=== PATIENT | male | born 1955 | race Caucasian/White ===

== ENCOUNTER 2025-07-02 20:01 | Emergency (ER) | payer MEDICARE, MEDICAID, SELFPAY ==
[2025-07-02 20:02] VITALS: BP 168/85; PULSE 107; RESP 20; TEMP 36.7; O2SAT 95
[2025-07-02 20:05] VITALS: PULSE 86; RESP 20; O2SAT 99
[2025-07-02 20:09] VITALS: BP 158/75; PULSE 114; RESP 20; TEMP 36.8; O2SAT 95
[2025-07-02 20:11] VITALS: BMI 25.9
--- NOTE | 2025-07-02 20:18 | PD.EDBACK ---
ED Back Injury Pain RME/HPI General Chief Complaint: Back Pain/Injury Stated Complaint: BACK PAIN Time Seen by Provider: 07/02/25 20:16 Arrival date/time: 07/02/25 20:01 Limitations: no limitations RME / HPI RME / HPI Narrative: 70-year-old patient living in a residential facility brought in by EMS. Of concern patient is a hospice patient secondary to metastatic cancer. Primary origin as reported by patient is from spine to brain. Reports stated he was on oral pain medication [id number] and fentanyl patch. Patient was reported to have history of dementia however during a moment of lucidity called EMS. Facility informed EMS that he was hospice. But due to patient appearing coherent was transported here to the hospital. Patient is alert and oriented x 4 during interaction. States he needs something different for pain today. Related Data Allergies Allergy/AdvReac Type Severity Reaction Status Date / Time No Known Allergies Allergy Verified 07/02/25 20:09 Review of Systems Review of Systems Systems Reviewed: All systems reviewed, normal except as documented Constitutional Constitutional: Denies fever(s) Musculoskeletal Musculoskeletal: Reports as per HPI ED Exam General Limitations: Present no limitations General appearance: Present alert and other (Moderate distress) Head Head exam: Present atraumatic Eye Eye exam: Present normal appearance, PERRL and EOMI ENT ENT exam: Present normal exam, normal oropharynx and mucous membranes moist Neck Neck exam: Present normal inspection, full ROM and trachea midline Chest Chest inspection: Present normal inspection and symmetric chest wall rise Respiratory Respiratory exam: Present normal lung sounds bilaterally Cardiovascular Cardiovascular exam: Present regular rate, normal rhythm and normal heart sounds Abdominal Exam Abdominal exam: Present soft and normal bowel sounds Extremities Exam Extremities exam: Present normal inspection and full ROM Back Exam Back exam: Present tenderness (Tenderness from C-spine to L-spine, large surgical scar from C-spine to the T-spine; no medication patch noted on skin) Neurological Exam Neurological exam: Present alert and oriented X3 Psychiatric Psychiatric exam: Present normal affect and normal mood Skin Skin exam: Present warm, dry, intact and normal color Course Course Course Narrative: Hospice patient in violation of hospice contract opted to transfer to ER for pain control. Was given multiple rounds of pain medicine and applied a 3-day patch of fentanyl and transport was arranged back to nursing facility. Hospice nurse showed up to advise patient this was an direct breach of his hospice contract we will have to reapply at nursing facility Quality Measures comfort care/end of life Orders Category Date Time Status IV [Insert IV] NOW Care 07/02/25 20:17 Completed Midazolam Inj [Versed Inj] Med 07/02/25 20:48 Discontinued 2.5 mg IVP X1 ONE Morphine* Inj Med 07/02/25 20:17 Discontinued 10 mg IVP X1 ONE Prochlorperazine Inj [Compazine Inj] Med 07/02/25 20:48 Discontinued 10 mg IV X1 ONE fentaNYL (Patch) [Duragesic] Med 07/02/25 20:50 Discontinued 50 mcg TOP X1 ONE Vital Signs Vital signs: Vital Signs Temperature 98.1 F 07/02/25 20:02 Pulse Rate 107 H 07/02/25 20:02 Respiratory Rate 20 07/02/25 20:02 Blood Pressure 168/85 H 07/02/25 20:02 Pulse Oximetry (%) 95 07/02/25 20:02 Oxygen Delivery Method Room Air 07/02/25 20:02 Back Pain / Injury Patient data External records reviewed:: EMS form, Penitentiary records and Other (specify) Clinical information provided by:: patient, EMS and other (specify) ([facility] ) Social determinants that could affect healthcare access:: substance use Patient has the following chronic illnesses:: Metastatic cancer on hospice How is presenting disease/condition affected by chronic disease/condition?: caused by Evaluation data The following diagnostics were reviewed and interpreted by me:: other (specify) (None) Lab and/or radiology exams considered but not ordered:: Patient is hospice patient and aware he has metastatic cancer no imaging or workup will change today's plan Interpretation Summary: None Medications / Prescriptions Medications or Prescriptions considered but not ordered:: Changing to oral morphine for residential facility was considered however will require order from doctor at [facility] Medication administrations:: Medication Administration History Discontinued Medications Fentanyl (Fentanyl 50 Mcg Transdermal Patch) 50 mcg TOP X1 ONE; Protocol Stop: 07/02/25 20:51 Last Admin: 07/02/25 21:25 Dose: 50 mcg Documented By: BD Midazolam HCl (Midazolam Inj 1 Mg/Ml Vial 2 Ml) 2.5 mg IVP X1 ONE Stop: 07/02/25 20:49 Last Admin: 07/02/25 20:56 Dose: 2.5 mg Documented By: BR Morphine Sulfate (Morphine Sulf Inj 4 Mg/Ml Vial) 10 mg IVP X1 ONE Stop: 07/02/25 20:18 Last Admin: 07/02/25 20:25 Dose: 10 mg Documented By: RAMON Prochlorperazine Edisylate (Prochlorperazine Inj 5 Mg/Ml Vial 2 Ml) 10 mg IV X1 ONE; Protocol Stop: 07/02/25 20:49 Last Admin: 07/02/25 20:56 Dose: 10 mg Documented By: RAMON See above Consultations Consultation(s) initiated? (list below): No Diagnosis Differential diagnosis back pain/injury: lumbar radiculopathy, sciatica and other (Metastatic cancer pain) Most likely diagnosis given after review of the tests above:: Metastatic cancer pain Hospice patient Admission Indicated Admission indicated?: not indicated Admission Request Was there a request for admission?: No Disposition Plan Disposition Plan: Discharge Discharge Attestation Discharge Attestation: The patient and all family members were given an opportunity to ask questions and understood the discharge instructions. Discharge instructions specifically effects, indications for sooner follow up or return to the emergency department, and the expected course of current diagnosis. Patient condition: Stable Discharge Plan Plan Patient Disposition: Xfer [employer] Acute Discharge Disposition comment: Patient sent back to nursing facility to continue hospice care Problem List Clinical Impression: Metastatic cancer, Lives in hospice facility Patient/Caregiver Discharge Instructions Education Materials: What Is Palliative Care? Print Language: Jordanian Stand Alone Forms: [employer] Award Info., Patient Portal Info Letter PA/MASTER Supervising Physician AASHISH/MASTER Supervising Physician: Dr. Alanis
[2025-07-02] MEDS: MORPHINE SULF INJ 4 MG/ML VIAL 10 MG IVP (20:25)
[2025-07-02] MEDS: PROCHLORPERAZINE INJ 5 MG/ML VIAL 2 ML 10 MG IV (20:56)
[2025-07-02] MEDS: MIDAZOLAM INJ 1 MG/ML VIAL 2 ML 2.5 MG IVP (20:56)
[2025-07-02 21:04] VITALS: BP 152/85; PULSE 105; RESP 12; O2SAT 96
[2025-07-02] MEDS: fentaNYL 50 mCg TRANSDERMAL PATCH TOP (21:25)
[2025-07-02 23:01] VITALS: BP 155/105; PULSE 110; RESP 19; TEMP 36.6; O2SAT 92
== END 2025-07-02 23:40 ==
LOC: SERX 21:17
PROVIDERS: Emergency Provider Emergency Medicine; PCP Hospitalist
DX: C79.9 Secondary malignant neoplasm of unspecified site (principal); Z51.5 Encounter for palliative care
CPT/HCPCS: 96374; 96375; 99282; J0780; J2250; J2270